=== PATIENT | male | born 1990 | race Caucasian/White ===

== ENCOUNTER 2020-05-13 18:35 | Emergency (ER) | payer SELFPAY ==
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
[2020-05-13 18:49] VITALS: BP 185/119; PULSE 82; RESP 14; TEMP 36.9; O2SAT 98; BMI 24.9
[2020-05-13 19:01] VITALS: BP 166/110; PULSE 84; RESP 16; O2SAT 97
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
[2020-05-13] MEDS: HYDROcodone-acetaminophen 10-325 mg Tablet 1 TAB PO (19:21)
[2020-05-13] MEDS: sulfamethoxazole-trimeth DS 160-800 mg Tablet 1 TAB PO (19:22)
[2020-05-13] MEDS: cefTRIAXone 1,000 mg SDV 1000 MG IM (19:59)
[2020-05-13 20:06] VITALS: BP 167/112; PULSE 92; RESP 14; O2SAT 97
== END 2020-05-13 20:08 | disposition home or self-care (01) ==
PROVIDERS: Emergency Provider Nurse Practitioner Family
DX: L02.512 Cutaneous abscess of left hand (principal); F17.210 Nicotine dependence, cigarettes, uncomplicated
CPT/HCPCS: 10060; 12345; 73130; 96372; 99281; 99283; J0696